=== PATIENT | female | born 1960 | race Caucasian/White ===

== ENCOUNTER → 2017-04-30 | Outpatient (REF) | payer BC, OTHER | LOC: M LAB REF 15:57 | PROVIDERS: ATTEND Family Medicine | DX: N39.0 Urinary tract infection, site not specified (principal) ==

== ENCOUNTER → 2018-11-14 | Outpatient (REF) | payer BC, OTHER | LOC: M LAB REF 16:56 | PROVIDERS: ATTEND Family Medicine | DX: R30.0 Dysuria (principal); R35.0 Frequency of micturition ==

== ENCOUNTER → 2021-10-14 | Outpatient (REF) | payer OTHER | LOC: M LAB REF 17:21 | PROVIDERS: ATTEND Family Medicine | DX: R30.0 Dysuria (principal) ==

== ENCOUNTER → 2023-10-27 | Outpatient (REF) | LOC: M PLAIMG 10:06 | PROVIDERS: ATTEND Internal Medicine | DX: R52 Pain, unspecified (principal) ==